=== PATIENT | male | born 1965 | race African-American/Black ===

== ENCOUNTER 2016-07-09 11:00 | Inpatient (IN) | payer OTHER ==
[2016-07-09 12:07] LABS: Hematocrit 41 % (42-52); Hemoglobin 13.9 g/dl (14.0-18.0); Mean Corpuscular HGB Conc 34 g/dl (31-36); Mean Corpuscular Hemoglobin 29 pg (27-31); Mean Corpuscular Volume 85 fL (80-94); Mean Platelet Volume 9 um3 (7.4-10.4); Red Cell Distribution Width 15 % (10.5-15); White Blood Count 6.9 10^3/ul (3.5-10.8)
[2016-07-09] MEDS ORDERED: NS 0.9% 1000 ML* 2,000 ML IV ONE (12:13)
[2016-07-09 12:20] LABS: Albumin 4.9 g/dL (3.2-5.2); BUN/Creatinine Ratio 9.4 (8-20); Calcium 9.7 mg/dL (8.6-10.3); EGFR African American 7.4 (>60); EGFR Non-African American 5.8 (>60); Total Bilirubin 0.4 mg/dL (0.2-1.0); Total Protein 8.9 g/dL (6.4-8.9)
[2016-07-09 12:21] LABS: Troponin I 0.01 ng/mL (<0.04)
--- NOTE | 2016-07-09 13:27 | RAD ---
INDICATION: Possible sepsis COMPARISON: None TECHNIQUE: An AP portable view obtained at 1123 hours is submitted. FINDINGS: Bones/Soft Tissues: There are no acute bony findings. Cardiomediastinal: The cardiomediastinal silhouette is normal. Lungs: There are no infiltrates. Pleura: There are no pleural effusions. Other: None IMPRESSION: NO ACTIVE DISEASE
--- NOTE | 2016-07-09 13:33 | RAD ---
CLINICAL HISTORY: Acute renal failure, rule out obstruction COMPARISON: None TECHNIQUE: Multiple contiguous axial CT scans were obtained of the abdomen and pelvis, without intravenous contrast enhancement. Coronal and sagittal multiplanar reformations are submitted for review. Oral contrast was not administered. FINDINGS: The study is limited by the lack of intravenous contrast. This limits evaluation of the solid organs and vasculature. LUNG BASES: The lung bases are clear. LIVER: The liver is normal in shape, size, contour, and attenuation. BILE DUCTS: There is no intrahepatic or extrahepatic biliary dilatation. GALLBLADDER: The gallbladder is normal, without pericholecystic inflammatory change. PANCREAS: The pancreas is normal, without mass or ductal dilatation. SPLEEN: Normal in size and appearance. UPPER GI TRACT: Evaluation of the gastrointestinal tract is limited by incomplete gastric distention. The upper GI tract is unremarkable. SMALL BOWEL AND MESENTERY: The small bowel is normal in contour, course, and caliber. There is no obstruction or dilatation. COLON: A colostomy is noted. ADRENALS: Normal bilaterally. KIDNEYS: The kidneys are normal in shape, size, contour, and axis. There is no hydronephrosis or nephrolithiasis. BLADDER: The bladder is collapsed and is not well evaluated. PELVIC ORGANS: The prostate gland is normal. The seminal vesicles are symmetric. AORTA: The aorta is normal. IVC: Unremarkable LYMPH NODES: There is no lymphadenopathy by size criteria. ABDOMINAL WALL: There is no evidence for abdominal wall hernia. BONES AND SOFT TISSUES: There is a broad-based disc bulge with degenerative changes noted at L5-S1 OTHER: None IMPRESSION: 1. NO HYDRONEPHROSIS OR NEPHROLITHIASIS. 2. COLOSTOMY. 3. DEGENERATIVE CHANGES MOST PRONOUNCED AT L5-S1. 4. OTHERWISE UNREMARKABLE NONCONTRAST CT OF THE ABDOMEN AND PELVIS
[2016-07-09] MEDS ORDERED: Acetaminophen TAB* 325 MG PO PRN ×2 (13:34→13:40)
[2016-07-09] MEDS ORDERED: Morphine INJ* 2 MG/ML 1 ML SYRINGE IV PRN (13:34)
[2016-07-09] MEDS ORDERED: Dextrose 50% Syringe 50 ML* 25 GM/50 ML SYRINGE IV PUSH PRN (13:40)
[2016-07-09] MEDS ORDERED: NS 0.9% 1000 ML* 1,000 ML IV SCH (13:45)
[2016-07-09] MEDS ORDERED: PROCHLORPERAZINE INJ 5 MG/ML 2 ML VIAL IV PRN (13:54)
[2016-07-09] MEDS ORDERED: Sodium Bicarbonate 8.4% IV* 150 MEQ in D5W 1000 ML BAG* 1,000 ML IVPB SCH (14:00)
[2016-07-09] MEDS: Heparin VIAL(*) 5000 UNITS/ML VIAL (FIVE THOUSAND) SUBCUT SCH ×2 (14:51→21:44)
[2016-07-09] MEDS: Pantoprazole IV* 40 MG IV SCH (14:51)
--- NOTE | 2016-07-09 16:50 | HP ---
HISTORY AND PHYSICAL: DATE OF ADMISSION: 07/09/16 PRIMARY CARE PROVIDER: Physician for [facility] in [place]. CHIEF COMPLAINT: Inability to void for 4 days and nausea and vomiting. HISTORY OF PRESENT ILLNESS: Mr. Parrish is a 51-year-old male who just arrived from [facility] 5 days ago from [facility]. He had been incarcerated since the the fall. The patient stated that ever since his arrival to the [facility], he has been having nausea, vomiting, epigastric pain. He also stated that his stoma output had been minimal, but it is basically liquid which is unusual. He also has had no urine urine output for the past 4 days. Please note that the patient is not the most precise and the best of historians. He was hospitalized at [facility] in [place], [place], from 06/13 to 06/18/16. It appears that the patient also at that point was diagnosed with hypovolemic shock with nausea, vomiting, and diarrhea. His creatinine at the time of admission to that facility was 10 and improved to 1.7 by 06/17/16. The patient was placed on bicarbonate at discharge and continued on most of his medications. The patient states at this time he really did not have that much of stoma output , but whatever he had, had been liquid. He stated that he did not have any problems with frequent hospitalizations for nausea, vomiting, and diarrhea prior to his incarceration. PAST MEDICAL HISTORY: 1. History of HIV, treated while incarcerated. Unknown CD4 count. 2. History of colon and stomach cancer, status post colostomy. 3. Diabetes. 4. Hypertension. 5. Dyslipidemia. 6. History of syphilis. 7. History of shingles. 8. History of thrombocytopenia. 9. History of alcohol abuse and substance abuse. 10. History of being bipolar. MEDICATIONS: Include: 1. Atorvastatin 40 mg daily. 2. Insulin lispro sliding scale. 3. Sodium bicarbonate 650 mg. The patient is supposed to take 2 tablets 3 times a day. 4. Bactrim DS 1 tablet daily. 5. Norvasc 2.5 mg daily. 6. Metformin 1000 mg b.i.d. 7. Acetaminophen on a p.r.n. basis. 8. Aspirin 81 mg daily. 9. Darunavir 600 mg b.i.d. 10. Isentress 400 mg b.i.d. 11. Ritonavir 100 mg b.i.d. ALLERGIES: No known drug allergies. FAMILY HISTORY: Positive for 2 brothers dying of unknown cancer. SOCIAL HISTORY: The patient has a history of tobacco, alcohol or drug use. He will not elaborate further during my visit possibly due to guards being present in the room. He stated that currently he does not smoke or drink alcohol or use drugs. He is incarcerated at [facility]. REVIEW OF SYSTEMS: Positive for nausea and vomiting for 3 to 4 days. Positive for liquid stoma output, but minimal output all together. Positive for anuria for 4 days. Positive for epigastric pain. The patient also stated that he lost approximately 15 pounds in the past 6 months. All the remaining 14 systems were reviewed with the patient and were otherwise negative. PHYSICAL EXAMINATION GENERAL: The patient is a very pleasant 51-year-old Male who is in no acute distress. Alert, awake, and oriented x3. VITAL SIGNS: Blood pressure of 105/56. The patient presented with pressures in the 70s to the ER. Heart rate of 65 and regular, respiratory rate 23, oxygen saturation 90% on room air, temperature of 98.8. HEENT: Head is atraumatic, normocephalic. Eyes: Pupils equal, reactive to light and accommodation. Oropharynx clear. Mucosa dry. Poor dentition. NECK: Supple. No JVD. No bruit bilaterally. CARDIOVASCULAR: Regular rate and rhythm. No murmur. RESPIRATORY: Clear to auscultation bilaterally. ABDOMEN: Soft, mildly tender in the epigastrium with no rebound, no guarding. Bowel sounds present in all 4 quadrants. Colostomy is in place, draining very liquid stool. BACK: Evaluation of back, the patient has no CVA tenderness. EXTREMITIES: There is no edema. Pulses are +2 bilaterally. No clubbing or cyanosis. SKIN: Dry. No ecchymotic areas or rashes noted. NEUROLOGIC: Speech clear. Cranial nerves II through XII grossly intact. Motor strength is 5/5 bilaterally. LABORATORY DATA: Showed sodium of 129, potassium of 4.0, chloride 93, carbon dioxide 16, anion gap 20, BUN 90, creatinine 9.5. Liver functions are unremarkable. Lactic acid of 3. Troponin of 0.01. CBC: White blood cell count 6.9, hemoglobin 13.9, hematocrit of 41, and platelets of 151. IMAGING: Portable chest x-ray, impression: "No active disease." The patient's postvoid residual was measured in the ER and was noted to be [address] of abdomen and pelvis obtained without contrast showed "no hydronephrosis or nephrolithiasis. Colostomy. Degenerative changes most pronounced at L4 and S1. Otherwise unremarkable noncontrast CT of abdomen and pelvis." The patient's EKG showed sinus bradycardia with heart rate of 55 beats per minute with below 1-mm ST elevation in leads V1 to V3 and negative T-waves in leads V3 and V4. Also, minimal ST elevation in leads II, III and aVF, but those appear to be due to elevation of J point. There was no old EKG available for comparison. ASSESSMENT AND PLAN: A 51-year-old male with history of status post colostomy for colon cancer and history of being human immunodeficiency virus positive, currently incarcerated, presents with nausea, vomiting, and anuria for 4 days. 1. In regards to the patient's hypovolemic shock, the patient is going to be admitted to the intensive care unit for intensive intravenous fluids hydration and monitoring. The hypovolemia was most likely due to nausea and vomiting. The patient also appears to have very liquid stoma output. We will obtain stool cultures as well as fecal lactoferrin. Stool was also going to be checked for cryptosporidium and C. diff. The patient is going to be placed on antiemetics for nausea as well as clear liquid diet. 2. In regards to the patient's acute renal failure, it is most likely due to hypovolemia. The patient has a history of creatinine reported on 06/23/16 of 2.32. He had a creatinine of 1.5 in November 2015, which is most likely his baseline. There is no evidence of obstruction on the CAT scan. Nevertheless, Broussard is going to be inserted for hemodynamic monitoring. I discussed the case briefly with Dr. William who also recommended bicarb drip and estimation of fractional excretion of sodium, which will be done. 3. In regards to the patient's fluid resuscitation, the patient is going to be placed on LR at 150 mL an hour as well as bicarb drip at 50 mL an hour. 4. For his diabetes, Glucophage is going to be held. The patient appears not to be a good candidate for Glucophage in the past due to his chronic kidney disease. The patient is going to be placed on insulin sliding scale. 5. For his hyperlipidemia, his statin is going to be held for the time being. 6. For DVT prophylaxis, the patient is going to be placed on heparin subcutaneously. 7. In regards to his human immunodeficiency virus, I will obtain his CD4 count. I will also continue his outpatient medications for his human immunodeficiency virus. 8. Code status is full. TIME SPENT: Approximately 72 minutes was spent on the admission of this patient , more than half the time was spent [id number] with the patient doing the interview and physical exam. CC: [facility]; Dr. William* [id number]/[facility] #: [id number] MARIXA
[2016-07-09] MEDS: Insulin LISPRO* 1 UNITS UNIT SUBCUT SCH (17:15)
[2016-07-09] MEDS: RALTEGRAVIR 400 MG PO SCH (21:44)
[2016-07-09] MEDS: RITONAVIR 100 MG PO SCH (21:44)
[2016-07-09] MEDS: DARUNAVIR 600 MG PO SCH (21:47)
[2016-07-09 22:21] LABS: Urine Bacteria 1+ (Absent); Urine Bilirubin Negative (Negative); Urine Glucose Negative (Negative); Urine Nitrite Negative (Negative)
[2016-07-10] MEDS ORDERED: NS 0.9% 1000 ML* 1,000 ML IV ONE ×2 (00:06→02:36)
[2016-07-10] MEDS: Heparin VIAL(*) 5000 UNITS/ML VIAL (FIVE THOUSAND) SUBCUT SCH ×3 (05:12→21:18)
[2016-07-10 06:00] LABS: Hematocrit 32 % (42-52); Hemoglobin 11.1 g/dl (14.0-18.0); Mean Corpuscular HGB Conc 35 g/dl (31-36); Mean Corpuscular Hemoglobin 29 pg (27-31); Mean Corpuscular Volume 84 fL (80-94); Mean Platelet Volume 9 um3 (7.4-10.4); Red Blood Count 3.82 10^6/ul (4.0-5.4); Red Cell Distribution Width 14 % (10.5-15); White Blood Count 3.7 10^3/ul (3.5-10.8)
[2016-07-10 06:11] LABS: BUN/Creatinine Ratio 11.1 (8-20); Calcium 7.8 mg/dL (8.6-10.3); EGFR African American 10.9 (>60); EGFR Non-African American 8.5 (>60)
[2016-07-10] MEDS ORDERED: NS 0.9% 1000 ML* 1,000 ML IV SCH (06:45)
[2016-07-10] MEDS: Aspirin EC Low Dose* 81 MG TAB.EC PO SCH (08:30)
[2016-07-10] MEDS: Insulin LISPRO* 1 UNITS UNIT SUBCUT SCH ×3 (08:30→16:51)
[2016-07-10] MEDS: DARUNAVIR 600 MG PO SCH ×2 (08:31→21:17)
[2016-07-10] MEDS: RITONAVIR 100 MG PO SCH ×2 (08:31→21:18)
[2016-07-10] MEDS: RALTEGRAVIR 400 MG PO SCH ×2 (08:32→21:17)
[2016-07-10] MEDS: KCL 20 MEQ/100 ML IVPREMIX* 20 MEQ/100 ML BAG IV SCH ×2 (09:28→11:36)
--- NOTE | 2016-07-10 10:39 | PN ---
Subjective Date of Service: 07/10/16 Interval History: Mr. Parrish states that he is feeling better. He denies any further nausea or vomiting or abdominal pain. He is eager to have his diet advanced. His only complaint is of hemorrhoid pain today. He comments that he feels that his liquid stool increased after his metformin was increased to 1000mg BID. Objective Active Medications: Acetaminophen (Tylenol Tab*) 650 mg PO Q4H PRN Aspirin (Aspirin Ec Low Dose*) 81 mg PO DAILY [facility] Darunavir (Prezista(Nf)) 600 mg PO BID [facility] Dextrose (D50w Syringe 50 Ml*) 12.5 gm IV PUSH .FOR FS < 60 - SS PRN Heparin Sodium (Porcine) (Heparin Vial(*)) 5,000 units SUBCUT Q8HR [facility] Sodium Bicarbonate 150 meq/ (Dextrose) 1,150 mls @ 50 mls/hr IVPB Q23H [facility] Lactated Ringer's (Lactated Ringers 1000 Ml Bag*) 1,000 mls @ 150 mls/hr IV PER RATE [facility] Sodium Chloride (Ns 0.9% 1000 Ml*) 1,000 mls @ 200 mls/hr IV PER RATE [facility] Potassium Chloride (Potassium Chloride 20 Meq/100 Ml Ivpremix*) 20 meq in 100 mls @ 50 mls/hr IV Q2H [facility] Lactated Ringer's (Lactated Ringers 1000 Ml Bag*) 1,000 mls @ 0 mls/hr IV WIDE OPEN [facility] Insulin Human Lispro (Humalog*) 0 units SUBCUT AC [facility] Morphine Sulfate (Morphine Inj (Syringe)*) 1 mg IV Q4H PRN Pantoprazole Sodium (Protonix Iv*) 40 mg IV Q24H [facility] Prochlorperazine Edisylate (Compazine Inj*) 5 mg IV Q6H PRN Raltegravir (Isentress*) 400 mg PO BID [facility] Ritonavir (Norvir Tab (Nf)) 100 mg PO BID [facility] Vital Signs 07/09/16 07/09/16 07/09/16 12:57 12:58 13:00 Temperature Pulse Rate 60 Respiratory 15 20 Rate Blood Pressure 92/47 (mmHg) O2 Sat by Pulse 100 Oximetry 07/09/16 07/09/16 07/09/16 13:03 13:45 14:00 Temperature 98.8 F Pulse Rate 65 60 63 Respiratory 23 12 14 Rate Blood Pressure 105/56 98/53 115/55 (mmHg) O2 Sat by Pulse 90 97 97 Oximetry 07/09/16 07/09/16 07/09/16 14:15 14:46 15:00 Temperature Pulse Rate 55 62 58 Respiratory 13 19 19 Rate Blood Pressure 85/47 93/74 107/42 (mmHg) O2 Sat by Pulse 98 98 100 Oximetry 07/09/16 07/09/16 07/09/16 15:15 15:30 16:00 Temperature Pulse Rate 55 57 58 Respiratory 13 13 13 Rate Blood Pressure 101/36 98/39 88/62 (mmHg) O2 Sat by Pulse 98 99 99 Oximetry 07/09/16 07/09/16 07/09/16 16:15 16:30 16:45 Temperature Pulse Rate 60 65 63 Respiratory 21 19 16 Rate Blood Pressure 103/85 98/18 95/75 (mmHg) O2 Sat by Pulse 99 99 100 Oximetry 07/09/16 07/09/16 07/09/16 17:00 17:09 17:15 Temperature Pulse Rate 69 71 68 Respiratory 17 16 21 Rate Blood Pressure 97/41 99/30 (mmHg) O2 Sat by Pulse 100 100 99 Oximetry 07/09/16 07/09/16 07/09/16 17:27 17:30 17:45 Temperature Pulse Rate 64 67 Respiratory 12 12 14 Rate Blood Pressure 96/39 94/37 (mmHg) O2 Sat by Pulse 100 100 Oximetry 07/09/16 07/09/16 07/09/16 17:55 18:00 18:15 Temperature Pulse Rate 63 62 64 Respiratory 12 11 14 Rate Blood Pressure 97/35 106/39 100/43 (mmHg) O2 Sat by Pulse 100 100 96 Oximetry 07/09/16 07/09/16 07/09/16 18:30 19:00 19:15 Temperature Pulse Rate 71 70 67 Respiratory 15 13 14 Rate Blood Pressure 101/39 96/39 96/43 (mmHg) O2 Sat by Pulse 99 98 100 Oximetry 07/09/16 07/09/16 07/09/16 19:30 19:45 20:00 Temperature Pulse Rate 67 71 68 Respiratory 17 19 16 Rate Blood Pressure 103/41 107/64 109/49 (mmHg) O2 Sat by Pulse 100 100 98 Oximetry 07/09/16 07/09/16 07/09/16 20:15 20:30 20:31 Temperature 98.6 F Pulse Rate 72 67 Respiratory 18 19 Rate Blood Pressure 111/51 107/53 (mmHg) O2 Sat by Pulse 100 100 Oximetry 07/09/16 07/09/16 07/09/16 20:45 21:00 21:15 Temperature Pulse Rate 64 71 62 Respiratory 19 16 14 Rate Blood Pressure 109/53 92/66 94/46 (mmHg) O2 Sat by Pulse 100 99 99 Oximetry 07/09/16 07/09/16 07/09/16 21:30 21:45 22:00 Temperature Pulse Rate 61 62 57 Respiratory 16 17 12 Rate Blood Pressure 100/43 102/47 103/56 (mmHg) O2 Sat by Pulse 100 99 100 Oximetry 07/09/16 07/09/16 07/09/16 22:15 22:30 22:45 Temperature Pulse Rate 69 60 59 Respiratory 16 14 13 Rate Blood Pressure 115/53 93/36 86/40 (mmHg) O2 Sat by Pulse 100 100 99 Oximetry 07/09/16 07/09/16 07/09/16 23:00 23:01 23:15 Temperature Pulse Rate 75 62 65 Respiratory 19 16 16 Rate Blood Pressure 94/50 89/44 (mmHg) O2 Sat by Pulse 99 99 99 Oximetry 07/09/16 07/09/16 07/09/16 23:30 23:36 23:45 Temperature Pulse Rate 63 57 60 Respiratory 14 14 13 Rate Blood Pressure 89/43 95/44 (mmHg) O2 Sat by Pulse 99 100 100 Oximetry 07/10/16 07/10/16 07/10/16 00:00 00:01 00:15 Temperature 98.5 F Pulse Rate 56 60 59 Respiratory 12 15 14 Rate Blood Pressure 101/57 90/40 (mmHg) O2 Sat by Pulse 100 100 100 Oximetry 07/10/16 07/10/16 07/10/16 00:30 00:45 01:00 Temperature Pulse Rate 59 56 61 Respiratory 13 13 13 Rate Blood Pressure 101/54 88/40 94/45 (mmHg) O2 Sat by Pulse 100 100 99 Oximetry 07/10/16 07/10/16 07/10/16 01:15 01:29 02:00 Temperature Pulse Rate 62 67 66 Respiratory 12 17 14 Rate Blood Pressure 82/38 96/41 92/55 (mmHg) O2 Sat by Pulse 99 99 99 Oximetry 07/10/16 07/10/16 07/10/16 02:11 03:00 03:01 Temperature Pulse Rate 64 67 70 Respiratory 15 17 22 Rate Blood Pressure 87/44 97/58 (mmHg) O2 Sat by Pulse 96 98 98 Oximetry 07/10/16 07/10/16 07/10/16 04:00 05:00 06:00 Temperature 97.4 F Pulse Rate 61 53 62 Respiratory 20 13 11 Rate Blood Pressure 92/46 102/51 78/38 (mmHg) O2 Sat by Pulse 100 96 99 Oximetry 07/10/16 07/10/16 07/10/16 06:01 06:04 07:00 Temperature Pulse Rate 63 64 62 Respiratory 11 11 13 Rate Blood Pressure 79/40 80/38 91/52 (mmHg) O2 Sat by Pulse 98 99 100 Oximetry 07/10/16 07/10/16 08:00 09:00 Temperature 97.7 F Pulse Rate 57 54 Respiratory 12 14 Rate Blood Pressure 80/39 94/50 (mmHg) O2 Sat by Pulse 98 100 Oximetry Oxygen Devices in Use Now: None Appearance: Male lying in bed in NAD Neck: NL Appearance and Movements; NL JVP Respiratory: Symmetrical Chest Expansion and Respiratory Effort, Clear to Auscultation Cardiovascular: NL Sounds; No Murmurs; No JVD, No Edema Abdominal: NL Sounds; No Tenderness; No Distention Extremities: No Edema Skin: No Rash or Ulcers Neurological: Alert and Oriented x 3, NL Muscle Strength and Tone Nutrition: Taking PO's Result Diagrams: 07/10/16 04:55 07/10/16 04:55 Microbiology and Other Data: Microbiology 07/09/16 16:30 Stool Gross Appearance - Final Stool C. difficile DNA Amplification - Final 027 Presumptive NEGATIVE Toxigenic C.diff NEGATIVE Stool Lactoferrin - Final Assess/Plan/Problems-Billing Assessment: Mr. 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 - Patient Problems (1) Acute on chronic kidney failure Comment: N/V resolved. Creatine down from 9 -> 6 overnight after IVF. Good urine output now. Continue IVF and bicarb gtt. Recheck labs in AM. Dose all medications renally. Of note, patient does have a component of ATN based on FeNa of 2.5% but suspect dramatic rise in creatinine secondary to hypovolemia. (2) Nausea & vomiting Comment: Resolved. ? viral gastroenteritis. (3) Liquid stool Comment: Continues. Suspect exacerbated by viral gastroenteritis. However, patient does report worsening liquid stool since metformin increased. Based on this and patient's ongoing problems with acute on chronic kidney failure, plan to d/c metformin. (4) HIV (human immunodeficiency virus infection) Comment: CD4 count pending. Continue routine meds. (5) Hemorrhoid Comment: Hemorrhoid ointment ordered. (6) Diabetes Comment: BGs well controlled. Resume consistent carb diet. Discontinue metformin. Provide lispro SSI coverage with meals. (7) DVT prophylaxis Comment: Heparin SQ. (8) Full code status Status and Disposition: Inpatient. Transfer to Medical Floor. Anticipate return to [facility] when medically stable.
[2016-07-10] MEDS ORDERED: Hemorrhoidal OINT PR PRN (10:44)
[2016-07-10] MEDS ORDERED: Sodium Bicarbonate 8.4% IV* 150 MEQ in D5W 1000 ML BAG* 1,000 ML IVPB SCH ×2 (12:00→13:00)
[2016-07-10] MEDS: Pantoprazole IV* 40 MG IV SCH (13:43)
[2016-07-10 18:21] LABS: % CD3 63 % (58-86); % CD4 6 % (32-64); % CD8 54 % (11-40); Absolute CD45 Count 2.07 thou/mcL (0.82-2.84)
[2016-07-10] MEDS: Sodium Bicarbonate (ANTACID)* 650 MG TAB PO SCH (21:17)
[2016-07-11] MEDS: Heparin VIAL(*) 5000 UNITS/ML VIAL (FIVE THOUSAND) SUBCUT SCH ×2 (05:11→15:04)
[2016-07-11 06:43] LABS: BUN/Creatinine Ratio 13.3 (8-20); Calcium 8.5 mg/dL (8.6-10.3); EGFR African American 32.9 (>60); EGFR Non-African American 25.6 (>60)
[2016-07-11] MEDS: Insulin LISPRO* 1 UNITS UNIT SUBCUT SCH ×2 (08:24→12:23)
[2016-07-11] MEDS: Aspirin EC Low Dose* 81 MG TAB.EC PO SCH (10:36)
[2016-07-11] MEDS: Sodium Bicarbonate (ANTACID)* 650 MG TAB PO SCH ×2 (10:36→14:28)
[2016-07-11] MEDS: DARUNAVIR 600 MG PO SCH (10:37)
[2016-07-11] MEDS: RALTEGRAVIR 400 MG PO SCH (10:37)
[2016-07-11] MEDS: RITONAVIR 100 MG PO SCH (10:37)
--- NOTE | 2016-07-11 13:06 | PN ---
Subjective Date of Service: 07/11/16 Interval History: Mr. Parrish states that he is feeling much better today. He denies nausea or vomiting and has been tolerating oral intake well. He further denies chest pain , SOB, or abdominal pain. Objective Active Medications: Acetaminophen (Tylenol Tab*) 650 mg PO Q4H PRN Aspirin (Aspirin Ec Low Dose*) 81 mg PO DAILY [facility] Darunavir (Prezista(Nf)) 600 mg PO BID [facility] Dextrose (D50w Syringe 50 Ml*) 12.5 gm IV PUSH .FOR FS < 60 - SS PRN Heparin Sodium (Porcine) (Heparin Vial(*)) 5,000 units SUBCUT Q8HR [facility] Lactated Ringer's (Lactated Ringers 1000 Ml Bag*) 1,000 mls @ 150 mls/hr IV PER RATE [facility] Insulin Human Lispro (Humalog*) 0 units SUBCUT AC [facility] Morphine Sulfate (Morphine Inj (Syringe)*) 1 mg IV Q4H PRN Pantoprazole Sodium (Protonix Iv*) 40 mg IV Q24H [facility] Phenyleph/Shark Oil/Min Oil/Petrol (Preparation H*) 1 applic [place] TID PRN Prochlorperazine Edisylate (Compazine Inj*) 5 mg IV Q6H PRN Raltegravir (Isentress*) 400 mg PO BID [facility] Ritonavir (Norvir Tab (Nf)) 100 mg PO BID [facility] Sodium Bicarbonate (Sodium Bicarbonate (Antacid)*) 650 mg PO TID [facility] Vital Signs 07/10/16 07/10/16 07/10/16 16:00 20:00 20:50 Temperature 98 F 98 F Pulse Rate 58 Respiratory 16 16 Rate Blood Pressure 102/58 (mmHg) O2 Sat by Pulse 100 100 Oximetry 07/10/16 07/10/16 07/11/16 21:50 23:28 00:00 Temperature 98.4 F 98.1 F Pulse Rate 52 67 Respiratory 16 16 Rate Blood Pressure 95/57 92/55 92/55 (mmHg) O2 Sat by Pulse 96 100 Oximetry 07/11/16 07/11/16 07/11/16 03:43 04:00 07:29 Temperature 98.3 F 98.3 F Pulse Rate 66 62 Respiratory 16 17 16 Rate Blood Pressure 103/60 115/60 (mmHg) O2 Sat by Pulse 100 99 Oximetry 07/11/16 08:00 Temperature Pulse Rate Respiratory 16 Rate Blood Pressure (mmHg) O2 Sat by Pulse 99 Oximetry Oxygen Devices in Use Now: None Appearance: Male lying in bed in NAD Respiratory: Symmetrical Chest Expansion and Respiratory Effort, Clear to Auscultation Cardiovascular: NL Sounds; No Murmurs; No JVD, No Edema Abdominal: NL Sounds; No Tenderness; No Distention Extremities: No Edema Skin: No Rash or Ulcers Neurological: Alert and Oriented x 3, NL Muscle Strength and Tone Nutrition: Taking PO's Result Diagrams: 07/10/16 04:55 07/11/16 07:40 Microbiology and Other Data: Microbiology 07/09/16 16:30 Stool Gross Appearance - Final Stool C. difficile DNA Amplification - Final 027 Presumptive NEGATIVE Toxigenic C.diff NEGATIVE Stool Lactoferrin - Final Assess/Plan/Problems-Billing Assessment: Mr. 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 - Patient Problems (1) Acute on chronic kidney failure Comment: N/V resolved. Creatine down from 9 -> 2 since arrival. Good urine output now. Of note, patient does have a component of ATN based on FeNa of 2.5 % but suspect dramatic rise in creatinine secondary to hypovolemia. (2) Nausea & vomiting Comment: Resolved. ? viral gastroenteritis. (3) Liquid stool Comment: Continues. Suspect exacerbated by viral gastroenteritis. However, patient does report worsening liquid stool since metformin increased. Based on this and patient's ongoing problems with acute on chronic kidney failure, plan to d/c metformin. (4) HIV (human immunodeficiency virus infection) Comment: Continue routine meds. (5) Hemorrhoid Comment: Hemorrhoid ointment ordered. (6) Diabetes Comment: BGs well controlled. Resume consistent carb diet. Discontinue metformin. Provide lispro SSI coverage with meals. (7) DVT prophylaxis Comment: Heparin SQ. (8) Full code status Status and Disposition: Discharge.
[2016-07-11] MEDS: Pantoprazole IV* 40 MG IV SCH (14:28)
[2016-07-11 15:25] VITALS: BP 121/61
--- NOTE | 2016-07-12 03:45 | DS ---
HOSPITAL MEDICINE DISCHARGE SUMMARY: DATE OF ADMISSION: 07/09/16 DATE OF DISCHARGE: 07/11/16 ATTENDING PHYSICIAN: Dr. Kamran Cassidy* (dictation provided by Julianna Ahmadi NP ). PRIMARY DIAGNOSES: 1. [id number] renal failure. 2. Hypovolemia. 3. Nausea, vomiting, and liquid stool. 4. Question viral gastroenteritis. SECONDARY DIAGNOSES: 1. History of HIV; CD4 count at this admission, percent CD4 6, absolute CD4 131. 2. History of colon and stomach cancer, status post colostomy. 3. Type 2 diabetes, insulin dependent. 4. Hypertension. 5. Dyslipidemia. 6. History of syphilis. 7. History of shingles. 8. History of thrombocytopenia. 9. History of alcohol and substance abuse. 10. History of bipolar disorder. MEDICATIONS: At the time of discharge: 1. Stop metformin secondary to renal failure. 2. Atorvastatin 40 mg p.o. daily. 3. Lispro sliding scale insulin. 4. Sodium bicarbonate 650 mg t.i.d. 5. Bactrim DS 1 tab daily. 6. Norvasc 2.5 mg daily. 7. Acetaminophen p.r.n. 8. Aspirin 81 mg daily. 9. Darunavir 600 mg b.i.d. 10. Isentress 400 mg b.i.d. 11. Ritonavir 100 mg b.i.d. HOSPITAL COURSE: Mr. Parrish is a 51-year-old incarcerated male who presented to the hospital on 07/09/16 with a concern for inability to void for the past 4 days with nausea and vomiting. Please see the dictated H and P from Dr. Cherry Og for complete details. In brief, as reported, the patient had no urine output and nausea and vomiting. He had just been hospitalized from to 06/18/16 at [facility] in [place], [place], secondary to hypovolemic shock again secondary to nausea, vomiting and diarrhea. During that admission, his creatinine was up to 10, but did improve to 1.7 by the time of discharge. At the time of admission to our hospital, his creatinine was 9.57 with a BUN of 90. It was suspected that again he had hypovolemia leading to acute on chronic renal failure. Mr. Parrish was given multiple liters of IV fluids and with this over the past 48 hours, his creatinine has fallen from 9.57 to 2.63. His nausea and vomiting have resolved. He has been tolerating oral intake well. It is unclear exactly what drove this repeat bout of nausea and vomiting. It could be a viral gastroenteritis. I am also concerned that the patient has been on metformin and has ongoing issues with [id number] renal failure and this could be contributing to his liquid stool and also lactic acidosis which could contribute to the nausea and vomiting. Regardless, based on his renal failure, he should be off the metformin going forward. Mr. Parrish is doing well today. He is tolerating oral intake. I recommend that he be discharged back to [facility]. The patient should have repeat followup labs drawn on Wednesday or Wednesday next week to check his creatinine and oral fluid should be encouraged. The patient is a high risk for decompensation with episodes of nausea and vomiting and that should be addressed quickly were it to develop in the future. DISPOSITION: [facility]. DIET: Consistent carbohydrate. ACTIVITY: As tolerated. FOLLOW-UP PLAN: Please follow up with the providers at [facility] regarding continued monitoring of creatinine. TIME SPENT: Approximately 60 minutes were spent on the discharge of this patient, more than half the time spent with him at the bedside reviewing the events leading up to this hospitalization, performing the physical examination and reviewing the plan of care. JULIANNA AHMADI NP CC: Providers at [facility] * [id number]/[facility] #: [id number] MARIXA
--- NOTE | 2016-07-12 09:39 | ED ---
Lars Espinoza Matthew, scribed for Jonah Elena MD on 07/09/16 at 1221 . GI/ HPI - HPI Summary HPI Summary: A 51 y/o male presents to the ED with n/v since 4 days ago. Associated symptoms include body aches, inability to urinate, suprapubic abdominal pain, mild SOB, and chills. The patient denies fever, diaphoresis, and sore throat. He also states that he had a swollen tongue a couple of days ago. He was hospitalized on 06/13 for hypoglycemic shock. Recently Dx with renal failure. He's also c/o of a sore on his back. No Hx of constipation. - History of Current Complaint Chief Complaint: EDNauseaVomitDiarrh Time Seen by Provider: 07/09/16 11:14 Stated Complaint: POSS septic Hx Obtained From: Patient Onset/Duration: Started Days Ago, Atraumatic, Still Present Timing: Constant Severity: Moderate Current Severity: Moderate Pain Intensity: 8 Location of Pain: Suprapubic Associated Signs and Symptoms: Positive: Nausea, Vomiting, Chills, Abdominal Pain - suprapubic, Other: - Unable to urinate. Negative: Diarrhea, Diaphoresis , Fever, Chest Pain - Allergy/Home Medications Allergies/Adverse Reactions: Allergies Allergy/AdvReac Type Severity Reaction Status Date / Time No Known Allergies Allergy Verified 07/09/16 11:55 Home Medications: Home Medications Acetaminophen TAB* [Tylenol TAB*] 650 mg PO Q6H PRN 07/09/16 [History Confirmed 07/09/16] Aspirin EC Low Dose* [Ecotrin EC Low Dose 81 MG*] 81 mg PO DAILY 07/09/16 [ History Confirmed 07/09/16] Atorvastatin* [Lipitor 40 MG*] 40 mg PO DAILY 07/09/16 [History Confirmed ] Darunavir(NF) [Prezista(NF)] 600 mg PO BID 07/09/16 [History Confirmed 07/09/16] Insulin LISPRO* [HumaLOG*] 0 - 100 unit SUBCUT TID AC 07/09/16 [History Confirmed 07/09/16] Raltegravir* [Isentress*] 400 mg PO BID 07/09/16 [History Confirmed 07/09/16] Ritonavir TAB (NF) [Norvir TAB (NF)] 100 mg PO BID 07/09/16 [History Confirmed 07/09/16] Sodium Bicarbonate (Antacid) [Sodium Bicarbonate] 650 mg PO TID 07/09/16 [ History Confirmed 07/10/16] Sulfamethox/Trimethoprim DS* [Bactrim DS 800/160 TAB*] 1 tab PO DAILY 07/09/16 [ History Confirmed 07/09/16] amLODIPine TAB* [Norvasc TAB*] 2.5 mg PO DAILY 07/09/16 [History Confirmed 07/09] PMH/Surg Hx/FS Hx/Imm Hx Endocrine/Hematology History: Reports: Hx Diabetes Cardiovascular History: Reports: Hx Hypercholesterolemia, Hx Hypertension Psychiatric History: Reports: Hx Bipolar Disorder, Hx Substance Abuse - Cancer History Cancer Type, Location and Year: Colon CA Infectious Disease History: Yes Infectious Disease History: Reports: Hx Human Immunodeficiency Virus (HIV), Hx Shingles Denies: Traveled Outside the [place] in Last 30 Days - Family History Family History: FHx of CA - Social History Alcohol Use: Daily Hx Substance Use: Yes Hx Tobacco Use: Yes Smoking Status (MU): Current Every Day Smoker Review of Systems Positive: Chills. Negative: Fever, Skin Diaphoresis Eyes: Negative Negative: Erythema ENT: Negative Negative: Sore Throat Cardiovascular: Negative Negative: Chest Pain Positive: Shortness Of Breath - mild Positive: Abdominal Pain - suprapubic abdominal pain, Vomiting, Nausea Genitourinary: Other - unable to urinate Negative: dysuria, hematuria Positive: Myalgia - body aches. Negative: Edema Skin: Negative Neurological: Negative Psychological: Normal All Other Systems Reviewed And Are Negative: Yes Physical Exam Triage Information Reviewed: Yes Vital Signs On Initial Exam: Initial Vitals Temp Pulse Resp BP Pulse Ox 97.8 F 62 20 98/45 96 07/09/16 11:05 07/09/16 11:05 07/09/16 11:05 07/09/16 11:05 07/09/16 11:05 Vital Signs Reviewed: Yes Appearance: Positive: No Pain Distress Skin: Positive: Warm, Dry Head/Face: Positive: Other - Normocephalic; Atraumatic Eyes: Positive: Conjunctiva Clear ENT: Positive: Other - dry oral mucous membranes Respiratory/Lung Sounds: Positive: Other - Normal Effort. Negative: Rales, Rhonchi, Stridor, Tracheal Deviation, Wheezes Cardiovascular: Positive: RRR, Other - Heart sounds normal; Intact distal pulses ; The pedal pulses are 2+ and symmetric. Radial pulses are 2+ and symmetric.. Negative: Murmur Abdomen Description: Positive: Nontender, Soft, Other: - No rebound; stool output into the colostomy bag. Negative: Distended, Guarding Bowel Sounds: Positive: Present Musculoskeletal: Negative: Edema Left, Edema Right Neurological: Positive: Alert, Oriented to Person Place, Time Psychiatric: Positive: Affect/Mood Appropriate Diagnostics - Vital Signs Vital Signs Temp Pulse Resp BP Pulse Ox 07/09/16 11:05 97.8 F 62 20 98/45 96 - Laboratory Lab Results: Lab Results 07/09/16 07/09/16 07/09/16 Range/Units 11:50 11:50 11:50 WBC 6.9 (3.5-10.8) 10^3/ul RBC 4.80 (4.0-5.4) 10^6/ul Hgb 13.9 L (14.0-18.0) g/dl Hct 41 L (42-52) % MCV 85 (80-94) fL MCH 29 (27-31) pg MCHC 34 (31-36) g/dl RDW 15 (10.5-15) % Plt Count 151 (150-450) 10^3/ul MPV 9 (7.4-10.4) um3 Neut % (Auto) 66.6 (38-83) % Lymph % (Auto) 27.2 (25-47) % Coke % (Auto) 5.2 (1-9) % Eos % (Auto) 0.3 (0-6) % Baso % (Auto) 0.7 (0-2) % Absolute Neuts (auto) 4.6 (1.5-7.7) 10^3/ul Absolute Lymphs (auto) 1.9 (1.0-4.8) 10^3/ul Absolute Monos (auto) 0.4 (0-0.8) 10^3/ul Absolute Eos (auto) 0 (0-0.6) 10^3/ul Absolute Basos (auto) 0 (0-0.2) 10^3/ul Absolute Nucleated RBC 0.01 10^3/ul Nucleated RBC % 0.1 INR (Anticoag Therapy) 1.02 (0.89-1.11) APTT 32.0 (26.0-36.3) seconds Sodium 129 L (133-145) mmol/L Potassium 4.0 (3.5-5.0) mmol/L Chloride 93 L (101-111) mmol/L Carbon Dioxide 16 L (22-32) mmol/L Anion Gap 20 H (2-11) mmol/L BUN 90 H (6-24) mg/dL Creatinine 9.57 H (0.67-1.17) mg/dL Est GFR ( Amer) 7.4 (>60) Est GFR (Non-Af Amer) 5.8 (>60) BUN/Creatinine Ratio 9.4 (8-20) Glucose 77 (70-100) mg/dL Lactic Acid (0.5-2.0) mmol/L Calcium 9.7 (8.6-10.3) mg/dL Total Bilirubin 0.40 (0.2-1.0) mg/dL AST 17 (13-39) U/L ALT 13 (7-52) U/L Alkaline Phosphatase 76 (34-104) U/L Troponin I 0.01 (<0.04) ng/mL Total Protein 8.9 (6.4-8.9) g/dL Albumin 4.9 (3.2-5.2) g/dL Globulin 4.0 (2-4) g/dL Albumin/Globulin Ratio 1.2 (1-3) 03/16/17 Range/Units 11:50 WBC (3.5-10.8) 10^3/ul RBC (4.0-5.4) 10^6/ul Hgb (14.0-18.0) g/dl Hct (42-52) % MCV (80-94) fL MCH (27-31) pg MCHC (31-36) g/dl RDW (10.5-15) % Plt Count (150-450) 10^3/ul MPV (7.4-10.4) um3 Neut % (Auto) (38-83) % Lymph % (Auto) (25-47) % Coke % (Auto) (1-9) % Eos % (Auto) (0-6) % Baso % (Auto) (0-2) % Absolute Neuts (auto) (1.5-7.7) 10^3/ul Absolute Lymphs (auto) (1.0-4.8) 10^3/ul Absolute Monos (auto) (0-0.8) 10^3/ul Absolute Eos (auto) (0-0.6) 10^3/ul Absolute Basos (auto) (0-0.2) 10^3/ul Absolute Nucleated RBC 10^3/ul Nucleated RBC % INR (Anticoag Therapy) (0.89-1.11) APTT (26.0-36.3) seconds Sodium (133-145) mmol/L Potassium (3.5-5.0) mmol/L Chloride (101-111) mmol/L Carbon Dioxide (22-32) mmol/L Anion Gap (2-11) mmol/L BUN (6-24) mg/dL Creatinine (0.67-1.17) mg/dL Est GFR ( Amer) (>60) Est GFR (Non-Af Amer) (>60) BUN/Creatinine Ratio (8-20) Glucose (70-100) mg/dL Lactic Acid 3.0 H* (0.5-2.0) mmol/L Calcium (8.6-10.3) mg/dL Total Bilirubin (0.2-1.0) mg/dL AST (13-39) U/L ALT (7-52) U/L Alkaline Phosphatase (34-104) U/L Troponin I (<0.04) ng/mL Total Protein (6.4-8.9) g/dL Albumin (3.2-5.2) g/dL Globulin (2-4) g/dL Albumin/Globulin Ratio (1-3) Result Diagrams: 07/10/16 04:55 07/11/16 07:40 Lab Statement: Any lab studies that have been ordered have been reviewed, and results considered in the medical decision making process. - Radiology CXR Xray Interpretation: No Acute Changes - IMPRESSION: NO ACTIVE DISEASE Radiology Interpretation Completed By: Radiologist - CT CT A/P CT Interpretation: Positive (See Comments) - IMPRESSION: 1. NO HYDRONEPHROSIS OR NEPHROLITHIASIS. 2. COLOSTOMY. 3. DEGENERATIVE CHANGES MOST PRONOUNCED AT L5-S1. 4. OTHERWISE UNREMARKABLE NONCONTRAST CT OF THE ABDOMEN AND PELVIS CT Interpretation Completed By: Radiologist - EKG 12:01 Cardiac Rate: Bradycardia - 55 bpm EKG Rhythm: Sinus Bradycardia EKG Interpretation: No STEMI GIGU Course/Dx - Course Assessment/Plan: A 51 y/o male presents to the ED with n/v since 4 days ago. Associated symptoms include body aches, inability to urinate, suprapubic abdominal pain, mild SOB, and chills. The patient denies fever, diaphoresis, and sore throat. CXR shows no active cardiopulmonary disease, EKG shows sinus bradycardia at 55 bpm. Labs were reviewed. Discussed the case with Dr. Og who will admit the patient into her services. - Diagnoses Provider Diagnoses: ACUTE RENAL FAILURE - Physician Notifications Discussed Care Of Patient With: Dr. Og (Hospitalist) at 13:08 -- Notified of patient's history and will admit the patient into her services. Discharge - Discharge Plan Condition: Stable Disposition: ADMITTED TO [facility] The documentation as recorded by the Lars maxwell Matthew accurately reflects the service I personally performed and the decisions made by , Jonah Elena MD.
== END 2016-07-11 15:45 | DRG 892 ==
LOC: ED 11:00 → ICU 12:43 → EEVIPCON 12:43 → MEDTELE 07-10 21:50
PROVIDERS: ADMIT Internal Medicine; ATTEND Internal Medicine
DX: N17.9 Acute kidney failure, unspecified (principal); B20 Human immunodeficiency virus [HIV] disease; E11.22 Type 2 diabetes mellitus with diabetic chronic kidney disease; E86.1 Hypovolemia; I12.9 Hypertensive chronic kidney disease with stage 1 through stage 4 chronic kidney disease, or unspecified chronic kidney disease; N18.9 Chronic kidney disease, unspecified; F31.9 Bipolar disorder, unspecified; K64.9 Unspecified hemorrhoids; A08.4 Viral intestinal infection, unspecified; E78.5 Hyperlipidemia, unspecified; Z79.4 Long term (current) use of insulin; Z79.84 Long term (current) use of oral hypoglycemic drugs; Z79.82 Long term (current) use of aspirin; Z87.891 Personal history of nicotine dependence; Z85.038 Personal history of other malignant neoplasm of large intestine; Z85.028 Personal history of other malignant neoplasm of stomach; Z93.3 Colostomy status
CPT/HCPCS: 36415; 71010; 74176; 80048; 80053; 81003; 81015; 82570; 83036; 83605; 83630; 84300; 84484; 85025; 85610; 85730; 86359; 86360; 87040; 87045; 87046; 87077; 87086; 87150; 87205; 87328; 87493; 87502; 87899; 93005; A9270-GY; J1644; J3480; J7060